=== PATIENT | female | born 1955 | race Caucasian/White ===

== ENCOUNTER 2017-11-28 10:44 | Observation (INO) | payer OTHER ==
[~2017-11-28] VITALS: Ht 172.7 cm; Wt 65.0 kg
[2017-11-28 11:56] LABS: BASO % 0.1 %; BASO ABS # 0.01 K/uL (0-0.2); EOS % 1.8 %; EOS ABS # 0.15 K/uL (0-0.5); HEMATOCRIT 38.2 % (37-47); HEMOGLOBIN 12.5 g/dL (12.0-16.0); IG# 0.03 K/uL (0.00-0.02); LYMPH % 10.4 %; LYMPH ABS # 0.85 K/uL (1.2-3.4); MEAN CELL VOLUME 93.2 fL (80-100); MEAN CORPUSCULAR HEMOGLOBIN 30.5 pg (25-34); MEAN CORPUSCULAR HGB CONC 32.7 g/dl (32-36); MEAN PLATELET VOLUME 9.7 fL (7.4-10.4); MONO % 6.6 %; MONO ABS # 0.54 K/uL (0.11-0.59); NEUT % 80.7 %; NEUT ABS # 6.61 K/uL (1.4-6.5); PLATELET COUNT 209 K/uL (130-400); RED CELL DISTRIBUTION WIDTH CV 13.7 % (11.5-14.5); RED CELL DISTRIBUTION WIDTH SD 46.5 fL (36.4-46.3); WHITE BLOOD COUNT 8.19 K/uL (4.8-10.8)
[2017-11-28 12:06] LABS: INR 1.3 (0.9-1.1); PTT PATIENT 41.5 SECONDS (21.0-31.0)
[2017-11-28 12:23] LABS: ALKALINE PHOSPHATASE 83 U/L (45-117); ALT/SGPT 20 U/L (12-78); AST/SGOT 12 U/L (15-37); BLOOD UREA NITROGEN 19 mg/dl (7-18); CALCIUM 9.6 mg/dl (8.5-10.1); CARBON DIOXIDE 27 mmol/L (21-32); CREATININE 1.07 mg/dl (0.60-1.20); GLUCOSE 134 mg/dl (70-99); POTASSIUM 3.5 mmol/L (3.5-5.1); SODIUM 143 mmol/L (136-145); TOTAL PROTEIN 6.1 gm/dl (6.4-8.2)
--- NOTE | 2017-11-28 13:37 | DIAGNOSTIC IMAGING REPORT ---
LUMBAR SPINE COMBINATION CLINICAL HISTORY: 62 years-old Female presenting with Back pain, left side, history of breast cancer, progressively worsening today, nonradiating pain, history of prior injury. TECHNIQUE: Multisequence, multiplanar MR imaging of the lumbar spine was performed before and after the administration of intravenous contrast. IV contrast: 7 mL of Gadavist. COMPARISON: None. FINDINGS: Localizer images: Several well-defined T2 hyperintensities in the liver likely hepatic cysts. Mild S-shaped scoliotic curvature of the lumbar spine with slight dextrocurvature at the thoracolumbar junction and levocurvature at L3-4. Exaggerated lumbar lordosis with focal kyphotic deformity at L1 with over 50% anterior vertebral body height loss. This level does not demonstrate significant T2 hyperintensity or suspicious enhancement to suggest a pathologic fracture or an acute injury. Mild fluid signal intensity within the T12-L1 and L1-2 disc spaces likely reactive and/or degenerative with no associated endplate edema. Round T2 hyperintense nonfat-containing enhancing lesion in T12. This is most concerning for a site of metastatic disease. T12 demonstrates approximately 25% anterior vertebral body height loss, which appears unrelated to the metastatic lesion. Mild inferior endplate concavity of L2 may also represent a compression deformity though this is not acute or subacute evidenced by the lack of edema. L3-L5 vertebral bodies maintain normal height, alignment, and bone marrow signal intensity. Diffuse intervertebral disc desiccation with height loss greatest in the upper to mid lumbar spine. Multilevel degenerative changes further detailed below: T12-L1: Minimal disc osteophyte complex without significant neural foraminal or spinal canal narrowing. L1-2: Minimal disc osteophyte complex without significant neural foraminal or spinal canal narrowing. L2-3: Minimal disc osteophyte complex with mild bilateral neural foraminal narrowing. No significant spinal canal narrowing. L3-4: Mild disc bulge is slightly eccentric with greater effacement of the right neural foramen. Mild bilateral neural foraminal narrowing. No apparent mass effect on the exiting roots. No significant spinal canal narrowing. L4-5: Mild disc bulge with resultant mild bilateral neural foraminal narrowing. Only mild facet arthropathy and ligamentum flavum thickening is evident. L5-S1: No significant neural foraminal or spinal canal narrowing. Spinal cord ends in good position at L1. Cauda equina normal in morphology. No abnormal enhancement of the nerve roots on postcontrast imaging. No epidural collection. Paraspinal musculature within normal limits for the patient's age. Nonspecific subcutaneous edema in the lumbar region. IMPRESSION: 1. Lesion at T12 most suspicious for metastatic focus. No additional site of osseous metastatic disease in the lumbar spine. 2. Moderate compression deformity of L1, which is chronic and does not appear to be a pathologic fracture. 3. Mild compression deformity of the inferior endplate of L2, which is also chronic and does not appear to be a pathologic fracture. 4. Mild multilevel degenerative changes with only mild bilateral neural foraminal narrowing at L2-3 through L4-5. No significant spinal canal narrowing. Electronically signed by: Jovan Aggarwal M.D. 11/28/2017 1:35 PM Dictated Date/Time: 11/28/2017 1:26 PM
[2017-11-28] MEDS ORDERED: [UNRECOGNIZED DRUG - OTHER] PO (13:44)
[2017-11-28] MEDS ORDERED: ZCR40 PO (13:44)
[2017-11-28] MEDS ORDERED: [UNRECOGNIZED DRUG - OTHER] PO (13:44)
[2017-11-28] MEDS ORDERED: [UNRECOGNIZED DRUG - OTHER] PO (13:44)
[2017-11-28] MEDS ORDERED: [UNRECOGNIZED DRUG - OTHER] PO (13:44)
[2017-11-28] MEDS ORDERED: DABI150C PO (13:44)
[2017-11-28 14:35] VITALS: O2SAT 98; Ht 172.7 cm; Wt 65.0 kg
--- NOTE | 2017-11-28 14:53 | History and Physical ---
History & Physical Date & Time of Service: Nov 28, 2017 at 14:23 Chief Complaint: Back Problems Primary Care Physician: No Doctor, Assigned History of Present Illness Source: patient, hospital records, other 62 y/o F Hx HLD, tobacco use, lower back pain, CVA with residual R weakness, LE edema, breast CA. Recently arrived from [facility] for a visit. She had seen her MD prior to departure as she was concerned with persistent lower back pain. She was subsequently cleared for travel. Her pain has become acutely worse today and she is unable to ambulate as a result. She states that the pain radiates down her L leg and is exacerbated with any movement. She denies acute numbness, incontinence or urinary retention. Her R leg is chronically weak following her CVA. A lumbar MRI was obtained in the ER revealing mild foraminal narrowing of L2-3 through L4-5, L1 and L2 compression deformities which appear chronic and, of concern, an osseous lesion at T12 which is consistent with metastatic disease. Her pain does not localize to this area. Past Medical/Surgical History 1) Chronic lower back pain 2) CVA - residual R weakness and contracture deformity of RUE 3) HLD 4) Breast CA 1996 - - treated with lumpectomy, chemo, radiation 5) Smoker Family History No pertinent family history Hails from [place] - smokes 6 cigarettes a week - does not drink Social History States her mother due to "old age" Her father following a serious injury from a fall Smoking Status: Current Every Day Smoker Allergies Coded Allergies: No Known Allergies (Unverified , 11/28/17) Home Medications Scheduled Dabigatran Etexilate Mesylate (Pradaxa), 150 MG PO BID Simvastatin (Simvastatin), 40 MG PO QPM [alendrox], 70 MG PO WK [etovicoxib], 90 MG PO DAILY [novaminsolfin], 30 DROPS PO QID [vigantal ol], 3 DROPS PO DAILY Review of Systems Constitutional: No fever, No chills, No sweats Eyes: No worsening of vision ENT: No unusual epistaxis, No nasal symptoms Respiratory: No cough, No sputum, No wheezing Cardiovascular: No chest pain, No orthopnea, No PND Abdomen: No pain, No nausea, No vomiting Musculoskeletal: + joint pain (Back pain as above), + problem reported (Lower back pain with radiation to the L leg) Genitourinary - Female: No dysuria, No urinary frequency, No urinary urgency Neurologic: + weakness (chronic R), No memory loss Psychiatric: No depression symptoms Endocrine: No fatigue Hematologic / Lymphatic: No abnormal bleeding/bruising Integumentary: No rash Allergic / Immunologic: No environmental allergies Physical Exam Vital Signs Date Time Temp Pulse Resp B/P (MAP) Pulse Ox O2 Delivery O2 Flow Rate FiO2 11/28/17 13:05 74 16 139/89 98 Room Air 11/28/17 11:09 84 11/28/17 10:51 36.9 92 20 112/76 95 Room Air General Appearance: WD/WN, no apparent distress Head: normocephalic Eyes: normal inspection ENT: normal ENT inspection, pharynx normal Neck: supple, no JVD Respiratory/Chest: chest non-tender, lungs clear, normal breath sounds Cardiovascular: regular rate, rhythm, no edema, no gallop Abdomen/GI: normal bowel sounds, non tender, soft Extremities/Musculoskelatal: + pertinent finding (She could not tolerate attempts to sit up. She has pain with passive and active movement of her legs. 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 which is also chronic ) Diagnostics Laboratory Results Results Past 24 Hours Test 11/28/17 11:45 11/28/17 14:10 Range/Units White Blood Count 8.19 4.8-10.8 K/uL Red Blood Count 4.10 4.2-5.4 M/uL Hemoglobin 12.5 12.0-16.0 g/dL Hematocrit 38.2 37-47 % Mean Corpuscular Volume 93.2 80-100 fL Mean Corpuscular Hemoglobin 30.5 25-34 pg Mean Corpuscular Hemoglobin Concent 32.7 32-36 g/dl Platelet Count 209 130-400 K/uL Mean Platelet Volume 9.7 7.4-10.4 fL Neutrophils (%) (Auto) 80.7 % Lymphocytes (%) (Auto) 10.4 % Monocytes (%) (Auto) 6.6 % Eosinophils (%) (Auto) 1.8 % Basophils (%) (Auto) 0.1 % Neutrophils # (Auto) 6.61 1.4-6.5 K/uL Lymphocytes # (Auto) 0.85 1.2-3.4 K/uL Monocytes # (Auto) 0.54 0.11-0.59 K/uL Eosinophils # (Auto) 0.15 0-0.5 K/uL Basophils # (Auto) 0.01 0-0.2 K/uL RDW Standard Deviation 46.5 36.4-46.3 fL RDW Coefficient of Variation 13.7 11.5-14.5 % Immature Granulocyte % (Auto) 0.4 % Immature Granulocyte # (Auto) 0.03 0.00-0.02 K/uL Erythrocyte Sedimentation Rate 5 0-21 mm/hr Prothrombin Time 13.6 9.0-12.0 SECONDS Prothromb Time International Ratio 1.3 0.9-1.1 Activated Partial Thromboplast Time 41.5 21.0-31.0 SECONDS Partial Thromboplastin Ratio 1.6 Sodium Level 143 136-145 mmol/L Potassium Level 3.5 3.5-5.1 mmol/L Chloride Level 110 98-107 mmol/L Carbon Dioxide Level 27 21-32 mmol/L Anion Gap 6.0 3-11 mmol/L Blood Urea Nitrogen 19 7-18 mg/dl Creatinine 1.07 0.60-1.20 mg/dl Estimated GFR () 63.5 Estimated GFR (Non- 54.8 BUN/Creatinine Ratio 17.5 10-20 Random Glucose 134 70-99 mg/dl Calcium Level 9.6 8.5-10.1 mg/dl Total Bilirubin 0.3 0.2-1 mg/dl Aspartate Amino Transf (AST/SGOT) 12 15-37 U/L Alanine Aminotransferase (ALT/SGPT) 20 12-78 U/L Alkaline Phosphatase 83 45-117 U/L C-Reactive Protein 4.37 0-0.29 mg/dl Total Protein 6.1 6.4-8.2 gm/dl Albumin 3.0 3.4-5.0 gm/dl Globulin 3.1 2.5-4.0 gm/dl Albumin/Globulin Ratio 1.0 0.9-2 Diagnostic Radiology 1. Lesion at T12 most suspicious for metastatic focus. No additional site of osseous metastatic disease in the lumbar spine. 2. Moderate compression deformity of L1, which is chronic and does not appear to be a pathologic fracture. 3. Mild compression deformity of the inferior endplate of L2, which is also chronic and does not appear to be a pathologic fracture. 4. Mild multilevel degenerative changes with only mild bilateral neural foraminal narrowing at L2-3 through L4-5. No significant spinal canal narrowing. Impression Assessment and Plan 62 y/o F Hx HLD, tobacco use, lower back pain, CVA with residual R weakness, LE edema, breast CA. Recently arrived from [place] for a visit. She had seen her MD prior to departure as she was concerned with persistent lower back pain. She was subsequently cleared for travel. Her pain has become acutely worse today and she is unable to ambulate as a result. She states that the pain radiates down her L leg and is exacerbated with any movement. She denies acute numbness, incontinence or urinary retention. Her R leg is chronically weak following her CVA. A lumbar MRI was obtained in the ER revealing mild foraminal narrowing of L2-3 through L4-5, L1 and L2 compression deformities which appear chronic and, of concern, an osseous lesion at T12 which is consistent with metastatic disease. Her pain does not localize to this area. 1) Back pain - inability to ambulate. We will provide pain control, antiinflammatories and a PT consult AM. If she has not improved, we may need to consult orthopedics, although by imaging, this does not appear to be a surgical issue. 2) Metastatic lesion at T12 - may be related to prior breast CA - she does not wish to pursue a workup in the [place] 3) CVA - etiology is not clear as she states she never had AF and is taking Pradaxa for a prior CVA. We will continue Pradaxa and a Statin. 3) HLD - cont Statin 4) Advised on smoking cessation Full code - Pradaxa prophylaxis. Total time for this admit including review of labs, meds, imaging, records - discussion with pt and ER attending - 45 min Resuscitation Status VTE Prophylaxis Will order VTE Prophylaxis: Yes
[2017-11-28] MEDS ORDERED: ALUMINUM/MAGNESIUM/SIMETH (MAALOX MAX) 30 ML UDC PO PRN (15:00)
[2017-11-28] MEDS ORDERED: ONDANSETRON INJ 2 MG/ML 2 ML VIAL IV PRN (15:00)
[2017-11-28] MEDS ORDERED: ACETAMINOPHEN 325 MG TAB PO PRN (15:00)
[2017-11-28] MEDS ORDERED: MAGNESIUM HYDROXIDE SUSP 30 ML UDC PO PRN (15:00)
[2017-11-28] MEDS ORDERED: POLYETHYLENE (MIRALAX) 17 GM PACK PO PRN (15:15)
[2017-11-28] MEDS ORDERED: KETOROLAC TROMETHAMINE 15 MG/ML VIAL IV. PRN (15:15)
--- NOTE | 2017-11-28 16:03 | EMERGENCY ROOM VISIT NOTE ---
History Report prepared by Lorie: Ana Granado Under the Supervision of: Dr. Drew Berry M.D. 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 They report she has had some back pain before traveling and had x-rays done and was cleared to travel. Her family reports that yesterday her pain worsened so much, she could no longer walk. They state her back pain is in her left buttock and radiates down her left leg. Sitting down alleviates her pain and movement is a worsening factor. They deny the pt having any fevers, cough, chest pain, or SOB. They report the patient had a stroke in 2006 and her right side was affected but she recovered some function. The patient also had breast cancer in the past. She takes Pradaxa and a cholesterol medication regularly. HPI and ROS somewhat limited secondary to the language barrier. 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 HPI and ROS somewhat limited secondary to the language barrier. Past Medical & Surgical Medical Problems: (1) Back pain Family History No pertinent family history Social History Smoking Status: Current Every Day Smoker Marital Status: Housing Status: lives with significant other Occupation Status: retired Current/Historical Medications Scheduled Dabigatran Etexilate Mesylate (Pradaxa), 150 MG PO BID Simvastatin (Simvastatin), 40 MG PO QPM [alendrox], 70 MG PO WK [etovicoxib], 90 MG PO DAILY [novaminsolfin], 30 DROPS PO QID [vigantal ol], 3 DROPS PO DAILY Allergies Coded Allergies: No Known Allergies (Unverified , 11/28/17) Physical Exam Vital Signs Date Time Temp Pulse Resp B/P (MAP) Pulse Ox O2 Delivery O2 Flow Rate FiO2 11/28/17 14:35 98 Room Air 11/28/17 13:05 74 16 139/89 98 Room Air 11/28/17 11:09 84 11/28/17 10:51 36.9 92 20 112/76 95 Room Air Physical Exam GENERAL: Patient is in no acute distress. HEENT: No acute trauma, normocephalic atraumatic, mucous membranes moist, no nasal congestion, no scleral icterus. NECK: No stridor, no adenopathy, no meningismus, trachea is midline. LUNGS: Clear to auscultation bilaterally, no wheeze, no rhonchi, breath sounds equal. HEART: Without murmurs gallops or rubs, regular rate and rhythm. ABDOMEN: Soft, nontender, bowel sounds positive, no hernias, no peritonitis. EXTREMITIES: No cyanosis, no signs for acute trauma. Moderate bilateral pedal edema. Left leg is painful with just minimal movement. Pain into her back from this leg movement. NEUROLOGIC: Right arm and right leg are weak secondary to previously described stroke. Awake and alert. SKIN: No rash, no jaundice, no diaphoresis. Medical Decision & Procedures ER Provider Diagnostic Interpretation: Radiology results as stated below per my review and radiologist interpretation: LUMBAR SPINE COMBINATION CLINICAL HISTORY: 62 years-old Female presenting with Back pain, left side, history of breast cancer, progressively worsening today, nonradiating pain, history of prior injury. TECHNIQUE: Multisequence, multiplanar MR imaging of the lumbar spine was performed before and after the administration of intravenous contrast. IV contrast: 7 mL of Gadavist. COMPARISON: None. FINDINGS: Localizer images: Several well-defined T2 hyperintensities in the liver likely hepatic cysts. Mild S-shaped scoliotic curvature of the lumbar spine with slight dextrocurvature at the thoracolumbar junction and levocurvature at L3-4. Exaggerated lumbar lordosis with focal kyphotic deformity at L1 with over 50% anterior vertebral body height loss. This level does not demonstrate significant T2 hyperintensity or suspicious enhancement to suggest a pathologic fracture or an acute injury. Mild fluid signal intensity within the T12-L1 and L1-2 disc spaces likely reactive and/or degenerative with no associated endplate edema. Round T2 hyperintense nonfat-containing enhancing lesion in T12. This is most concerning for a site of metastatic disease. T12 demonstrates approximately 25% anterior vertebral body height loss, which appears unrelated to the metastatic lesion. Mild inferior endplate concavity of L2 may also represent a compression deformity though this is not acute or subacute evidenced by the lack of edema. L3-L5 vertebral bodies maintain normal height, alignment, and bone marrow signal intensity. Diffuse intervertebral disc desiccation with height loss greatest in the upper to mid lumbar spine. Multilevel degenerative changes further detailed below: T12-L1: Minimal disc osteophyte complex without significant neural foraminal or spinal canal narrowing. L1-2: Minimal disc osteophyte complex without significant neural foraminal or spinal canal narrowing. L2-3: Minimal disc osteophyte complex with mild bilateral neural foraminal narrowing. No significant spinal canal narrowing. L3-4: Mild disc bulge is slightly eccentric with greater effacement of the right neural foramen. Mild bilateral neural foraminal narrowing. No apparent mass effect on the exiting roots. No significant spinal canal narrowing. L4-5: Mild disc bulge with resultant mild bilateral neural foraminal narrowing. Only mild facet arthropathy and ligamentum flavum thickening is evident. L5-S1: No significant neural foraminal or spinal canal narrowing. Spinal cord ends in good position at L1. Cauda equina normal in morphology. No abnormal enhancement of the nerve roots on postcontrast imaging. No epidural collection. Paraspinal musculature within normal limits for the patient's age. Nonspecific subcutaneous edema in the lumbar region. IMPRESSION: 1. Lesion at T12 most suspicious for metastatic focus. No additional site of osseous metastatic disease in the lumbar spine. 2. Moderate compression deformity of L1, which is chronic and does not appear to be a pathologic fracture. 3. Mild compression deformity of the inferior endplate of L2, which is also chronic and does not appear to be a pathologic fracture. 4. Mild multilevel degenerative changes with only mild bilateral neural foraminal narrowing at L2-3 through L4-5. No significant spinal canal narrowing. Electronically signed by: Jovan Aggarwal M.D. 11/28/2017 1:35 PM Laboratory Results 11/28/17 11:45 Red Blood Count 4.10, Mean Corpuscular Volume 93.2, Mean Corpuscular Hemoglobin 30.5, Mean Corpuscular Hemoglobin Concent 32.7, Mean Platelet Volume 9.7, Neutrophils (%) (Auto) 80.7, Lymphocytes (%) (Auto) 10.4, Monocytes (%) (Auto) 6.6, Eosinophils (%) (Auto) 1.8, Basophils (%) (Auto) 0.1, Neutrophils # (Auto) 6.61, Lymphocytes # (Auto) 0.85, Monocytes # (Auto) 0.54, Eosinophils # (Auto) 0.15, Basophils # (Auto) 0.01 11/28/17 11:45 Test 11/28/17 11:45 11/28/17 14:10 White Blood Count 8.19 K/uL (4.8-10.8) Red Blood Count 4.10 M/uL (4.2-5.4) Hemoglobin 12.5 g/dL (12.0-16.0) Hematocrit 38.2 % (37-47) Mean Corpuscular Volume 93.2 fL (80-100) Mean Corpuscular Hemoglobin 30.5 pg (25-34) Mean Corpuscular Hemoglobin Concent 32.7 g/dl (32-36) Platelet Count 209 K/uL (130-400) Mean Platelet Volume 9.7 fL (7.4-10.4) Neutrophils (%) (Auto) 80.7 % Lymphocytes (%) (Auto) 10.4 % Monocytes (%) (Auto) 6.6 % Eosinophils (%) (Auto) 1.8 % Basophils (%) (Auto) 0.1 % Neutrophils # (Auto) 6.61 K/uL (1.4-6.5) Lymphocytes # (Auto) 0.85 K/uL (1.2-3.4) Monocytes # (Auto) 0.54 K/uL (0.11-0.59) Eosinophils # (Auto) 0.15 K/uL (0-0.5) Basophils # (Auto) 0.01 K/uL (0-0.2) RDW Standard Deviation 46.5 fL (36.4-46.3) RDW Coefficient of Variation 13.7 % (11.5-14.5) Immature Granulocyte % (Auto) 0.4 % Immature Granulocyte # (Auto) 0.03 K/uL (0.00-0.02) Erythrocyte Sedimentation Rate 5 mm/hr (0-21) Prothrombin Time 13.6 SECONDS (9.0-12.0) Prothromb Time International Ratio 1.3 (0.9-1.1) Activated Partial Thromboplast Time 41.5 SECONDS (21.0-31.0) Partial Thromboplastin Ratio 1.6 Anion Gap 6.0 mmol/L (3-11) Estimated GFR () 63.5 Estimated GFR (Non- 54.8 BUN/Creatinine Ratio 17.5 (10-20) Calcium Level 9.6 mg/dl (8.5-10.1) Total Bilirubin 0.3 mg/dl (0.2-1) Aspartate Amino Transf (AST/SGOT) 12 U/L (15-37) Alanine Aminotransferase (ALT/SGPT) 20 U/L (12-78) Alkaline Phosphatase 83 U/L (45-117) C-Reactive Protein 4.37 mg/dl (0-0.29) Total Protein 6.1 gm/dl (6.4-8.2) Albumin 3.0 gm/dl (3.4-5.0) Globulin 3.1 gm/dl (2.5-4.0) Albumin/Globulin Ratio 1.0 (0.9-2) Urine Color YELLOW Urine Appearance CLOUDY (CLEAR) Urine pH 7.5 (4.5-7.5) Urine Specific [place] 1.019 (1.000-1.030) Urine Protein NEG (NEG) Urine Glucose (UA) 1+ (NEG) Urine Ketones NEG (NEG) Urine Occult Blood NEG (NEG) Urine Nitrite NEG (NEG) Urine Bilirubin NEG (NEG) Urine Urobilinogen NEG (NEG) Urine Leukocyte Esterase TRACE (NEG) Urine WBC (Auto) 1-5 /hpf (0-5) Urine RBC (Auto) 0-4 /hpf (0-4) Urine Hyaline Casts (Auto) 1-5 /lpf (0-5) Urine Epithelial Cells (Auto) >30 /lpf (0-5) Urine Bacteria (Auto) 3+ (NEG) Laboratory results reviewed by me. ECG Per My Interpretation Indication: back/shoulder pain Rate (beats per minute): 82 Rhythm: normal sinus Findings: other (no ST elevation, no PVCs) ED Course 1125: The patient was evaluated in room C4. A complete history and physical exam was performed. 1355: Discussed the patient's case with Dr. Falk, [facility] Hospitalist. The patient will be evaluated for further management. Medical Decision Differential diagnosis: Etiologies such as lumbar disc herniation, sciatica lumbar fracture, metastatic disease, UTI, electrolyte imbalance, anemia, as well as others were entertained. There is no leukocytosis or concerning anemia. No significant electrolyte abnormality, kidney failure or hepatitis. Urinalysis appears to show some contamination. Sed rate is normal, CRP is slightly elevated. EKG shows a normal sinus rhythm, no acute ischemia. Lumbar spine MRI shows a potential metastatic lesion to T12. There were some older compression fractures of the lumbar spine. No evidence for abscess. The patient has difficulty ambulating because of a previous stroke affecting the right side. She now cannot walk at all because of severe back pain and pain moving down her left leg. She cannot even get up to the bathroom on her own. The patient's pain is likely related to the lesion on the spine that was noted on MRI. Certainly, some of the compression fracture findings could be responsible for some of her pain. She is in no condition to be discharged. She requires pain control and probably physical therapy or some type of pain management procedure here in the hospital. I spoke to the patient and her family. I spoke to wrapper caser. The on-call hospitalist was consulted. Consults Time Called: 1346 Consulting Physician: Dr. Falk [facility] Hospitalist Returned Call: [id number] Discussed the patient's case with Dr. Falk [facility] Hospitalist. The patient will be evaluated for further management. Impression Primary Impression: Severe low back pain Additional Impressions: Unable to ambulate Compression fracture Abnormal MRI, lumbar spine Scribe Attestation The scribe's documentation has been prepared under my direction and personally reviewed by me in its entirety. I confirm that the note above accurately reflects all work, treatment, procedures, and medical decision making performed by me. Departure Information Dispostion Being Evaluated By Hospitalist (Dr. Falk, [facility] Hospitalist) Patient Instructions My [facility] Problem Qualifiers
[2017-11-28] MEDS ORDERED: IV FLUIDS COMPLETED PRN (16:15)
[2017-11-28 16:36] VITALS: BP 135/84; PULSE 77; TEMP 36.6; O2SAT 98
[2017-11-28] MEDS: DABIGATRAN ELEXILATE 75 MG CAP PO SCH (20:14)
[2017-11-28] MEDS: DOCUSATE SODIUM 100 MG CAP PO SCH (20:14)
[2017-11-28] MEDS: SIMVASTATIN 40 MG TAB PO SCH (20:14)
[2017-11-28] MEDS: OXYCODONE/ACETAMINOPHEN 5-325 TAB PO PRN (20:14)
[2017-11-28 22:49] VITALS: BP 143/81; PULSE 72; TEMP 37; O2SAT 93
[2017-11-29 08:03] VITALS: BP 145/82; PULSE 73; TEMP 37.2; O2SAT 96
[2017-11-29] MEDS: DABIGATRAN ELEXILATE 75 MG CAP PO SCH ×2 (08:29→20:31)
[2017-11-29] MEDS: DOCUSATE SODIUM 100 MG CAP PO SCH ×3 (08:29→20:30)
--- NOTE | 2017-11-29 10:54 | Hospitalist Progress Note ---
Hospitalist Progress Note Date of Service Nov 29, 2017. Subjective Pt evaluation today including: conversation w/ patient, conversation w/ family ( and sister at bedside, sister provides translation), physical exam, chart review, lab review, review of inpatient medication list Pain: None at rest, 8-9 out of 10 w/movement PO Intake: Tolerating PO diet Voiding: no voiding problems Patient does not speak [place], sister at bedside provides translation. The patient denies any pain currently while in bed but states that any movement, particularly sitting up and trying to walk, is very painful. She describes an 8 -9/10 sharp pain in her lower back radiating down her left thigh with any movement. She states her leg is weak and she is still unable to walk. Sister states that physical therapy came to evaluate, and it took 3 people just to get her to her feet. The patient is normally independent with walking. She is now unable to even lift her legs due to pain. It is unclear if the Percocet is helping with the pain as she only has pain w/movement and so has not been really taking it as she feels fine at rest. She did not take prior to physical therapy. The patient denies fevers, chills, sweats, chest pain, palpitations, claudication, cough, wheezing, shortness of breath, nausea, vomiting, abdominal pain, dysuria, hematuria, urinary retention, paralysis, numbness and tingling. Additional Comments: See HPI for pertinent positives and negatives. All other systems reviewed and negative. Objective Vital Signs Date Time Temp Pulse Resp B/P (MAP) Pulse Ox O2 Delivery O2 Flow Rate FiO2 11/29/17 08:03 37.2 73 20 145/82 (103) 96 11/29/17 00:00 Room Air 11/28/17 22:49 37.0 72 18 143/81 (101) 93 Room Air 11/28/17 16:36 36.6 77 18 135/84 (101) 98 11/28/17 16:03 77 20 142/95 98 11/28/17 16:00 Room Air 11/28/17 15:00 78 18 133/80 97 Room Air 11/28/17 14:35 98 Room Air 11/28/17 13:05 74 16 139/89 98 Room Air 11/28/17 11:09 84 11/28/17 10:51 36.9 92 20 112/76 95 Room Air Physical Exam Notes: General appearance: Well-developed, well-nourished, no apparent distress Head: Normocephalic, atraumatic Eyes: Normal inspection, PERRL, EOMI ENT: Normal ENT inspection, hearing grossly normal, pharynx normal Neck: Supple, no JVD, trachea midline Respiratory/Chest: Lungs clear to auscultation, normal breath sounds, no respiratory distress Cardiovascular: Regular rate & rhythm, no gallop, no murmur Abdomen/GI: Normal bowel sounds, non-tender, soft Extremities/Musculoskeletal: +Pt unable to sit up due to pain. Limited ROM of LLE due to pain and motor strength testing is limited by pain. Pt has chronic/ residual right sided weakness from previous stroke. Normal inspection, no calf tenderness, no pedal edema Neurological/Psych: Alert, normal mood/affect, oriented x 3 Skin: Normal color, warm/dry, no rash Laboratory Results Last 24 Hours Test 11/28/17 11:45 11/28/17 14:10 White Blood Count 8.19 K/uL Red Blood Count 4.10 M/uL Hemoglobin 12.5 g/dL Hematocrit 38.2 % Mean Corpuscular Volume 93.2 fL Mean Corpuscular Hemoglobin 30.5 pg Mean Corpuscular Hemoglobin Concent 32.7 g/dl Platelet Count 209 K/uL Mean Platelet Volume 9.7 fL Neutrophils (%) (Auto) 80.7 % Lymphocytes (%) (Auto) 10.4 % Monocytes (%) (Auto) 6.6 % Eosinophils (%) (Auto) 1.8 % Basophils (%) (Auto) 0.1 % Neutrophils # (Auto) 6.61 K/uL Lymphocytes # (Auto) 0.85 K/uL Monocytes # (Auto) 0.54 K/uL Eosinophils # (Auto) 0.15 K/uL Basophils # (Auto) 0.01 K/uL RDW Standard Deviation 46.5 fL RDW Coefficient of Variation 13.7 % Immature Granulocyte % (Auto) 0.4 % Immature Granulocyte # (Auto) 0.03 K/uL Erythrocyte Sedimentation Rate 5 mm/hr Prothrombin Time 13.6 SECONDS Prothromb Time International Ratio 1.3 Activated Partial Thromboplast Time 41.5 SECONDS Partial Thromboplastin Ratio 1.6 Sodium Level 143 mmol/L Potassium Level 3.5 mmol/L Chloride Level 110 mmol/L Carbon Dioxide Level 27 mmol/L Anion Gap 6.0 mmol/L Blood Urea Nitrogen 19 mg/dl Creatinine 1.07 mg/dl Estimated GFR () 63.5 Estimated GFR (Non- 54.8 BUN/Creatinine Ratio 17.5 Random Glucose 134 mg/dl Calcium Level 9.6 mg/dl Total Bilirubin 0.3 mg/dl Aspartate Amino Transf (AST/SGOT) 12 U/L Alanine Aminotransferase (ALT/SGPT) 20 U/L Alkaline Phosphatase 83 U/L C-Reactive Protein 4.37 mg/dl Total Protein 6.1 gm/dl Albumin 3.0 gm/dl Globulin 3.1 gm/dl Albumin/Globulin Ratio 1.0 Urine Color YELLOW Urine Appearance CLOUDY Urine pH 7.5 Urine Specific [place] 1.019 Urine Protein NEG Urine Glucose (UA) 1+ Urine Ketones NEG Urine Occult Blood NEG Urine Nitrite NEG Urine Bilirubin NEG Urine Urobilinogen NEG Urine Leukocyte Esterase TRACE Urine WBC (Auto) 1-5 /hpf Urine RBC (Auto) 0-4 /hpf Urine Hyaline Casts (Auto) 1-5 /lpf Urine Epithelial Cells (Auto) >30 /lpf Urine Bacteria (Auto) 3+ Assessment and Plan 62 y/o female with a history of CVA w/residual right sided weakness, HLD, tobacco use, lower back pain, and breast cancer who presents with acute lower back pain and difficulty ambulating. Pt normally independently ambulatory at baseline but has progressive pain and LLE weakness in the last few days until she could no longer walk. Low back pain, LLE weakness--stable -Admit to med/surg for observation -Lumbar MRI done in ED shows a lesion at T12 which is suspicious for metastatic focus. Moderate compression deformity of L1 which is chronic, no pathological fracture. Mild compression deformity of L2 which is also chronic and no pathological fracture. Mild multilevel degenerative changes with mild bilateral neural foraminal narrowing from L2-L5. -Will try to time Percocet w/physical therapy/activity to see if this is really helping her pain -Decadron 10 mg IV x 1, then 4 mg IV q6h -PT/OT ordered -Will hold off on ortho consult for now, as imaging does not seem to indicate surgical intervention and pt would not want to do any surgery here CVA w/residual weakness, HLD--stable -Continue Pradaxa 150 mg PO BID and Zocor 40 mg PO qd Tobacco use -Encourage cessation Breast cancer, possible metastatic T12 lesion -Pt does not want work up for this done in [place], will wait until she returns to [place] on 12/15 DVT prophylaxis -Pradaxa Code Status -Level I, FULL RESUSCITATION STATUS Continued [facility] stay due to: inadequate oral pain control, ambulation difficulties
[2017-11-29] MEDS ORDERED: DEXAMETHASONE INJ 10 MG in SYRINGE 0 ML IV ONE (11:00)
[2017-11-29] MEDS: OXYCODONE/ACETAMINOPHEN 5-325 TAB PO PRN (12:10)
[2017-11-29 15:47] VITALS: BP 150/84; PULSE 73; TEMP 36.6; O2SAT 95
--- NOTE | 2017-11-29 16:59 | DIAGNOSTIC IMAGING REPORT ---
L PELVIS/UNILATERAL HIP 2-3VIEWS CLINICAL HISTORY: Left hip pain. COMPARISON: None FINDINGS: Osteopenia is noted. No acute fracture of the proximal femurs is identified. There is deformity of the medial left pubic bone. This is probably chronic. 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 Apparent lucent lesion within left femoral head and neck is noted. IMPRESSION: 1. No acute fracture within the left hip although sensitivity diminished given osteopenia. 2. Deformity of the medial left pubic bone which is probably old. 3. Apparent lucent lesion with a left femoral head and neck. This may simply represent osteopenia and the radiographic appearance is not suggestive of an aggressive lesion. However, if persistent pain, an MRI of the left hip is recommended. Electronically signed by: Franc Busch M.D. 11/29/2017 4:57 PM Dictated Date/Time: 11/29/2017 4:53 PM
[2017-11-29] MEDS: DEXAMETHASONE INJ 4 MG in SYRINGE 0 ML IV SCH ×2 (17:09→23:02)
[2017-11-29] MEDS ORDERED: NURSING VERBAL MED ORDER ONE ×2 (18:15→18:30)
[2017-11-29] MEDS ORDERED: CALCIUM CARBONATE 500 MG CHEWABLE PO ONE (19:15)
[2017-11-29] MEDS: SIMVASTATIN 40 MG TAB PO SCH (20:30)
[2017-11-29 20:48] VITALS: O2SAT 95
[2017-11-29 23:00] VITALS: BP 136/81; PULSE 69; TEMP 36.5; O2SAT 96
[2017-11-30] MEDS: DEXAMETHASONE INJ 4 MG in SYRINGE 0 ML IV SCH ×4 (05:20→22:03)
[2017-11-30] MEDS: DOCUSATE SODIUM 100 MG CAP PO SCH ×2 (07:47→22:02)
[2017-11-30] MEDS: DABIGATRAN ELEXILATE 75 MG CAP PO SCH ×2 (07:47→22:02)
[2017-11-30] MEDS: CALCIUM CARBONATE 500 MG CHEWABLE PO SCH ×3 (07:48→17:20)
[2017-11-30 07:55] VITALS: BP 128/78; PULSE 61; TEMP 36.7; O2SAT 95
[2017-11-30 08:30] VITALS: O2SAT 95
[2017-11-30] MEDS: OXYCODONE/ACETAMINOPHEN 5-325 TAB PO PRN (12:24)
--- NOTE | 2017-11-30 14:14 | Progress Note ---
Subjective Date of Service: Nov 30, 2017. Subjective Pt evaluation today including: conversation w/ patient, conversation w/ family , physical exam, review of studies, review of inpatient medication list Pain: less pain, 7 out of 10 today PO Intake: adequate Voiding: no voiding problems patient sitting up in chair again, says that sitting or laying, there is no pain gets severe, stabbing pain in left hip, left lower back with moving leg, trying to stand or walk however, she did better with therapy today reviewed pelvic x-ray, no fractures seen however, there was some lucency in the head and neck of the femur, could be osteoporosis but metastatic lesion could not be ruled out discussed with patient and her sister, would prefer to get MRI left hip in [place] noted that patient had not taken Percocet for 24 hours encouraged her to take more often for better pain control, especially prior to therapy plan to d/c home tomorrow AM, patient and family agree with this plan Problem List Medical Problems: (1) Abnormal MRI, lumbar spine Status: Acute (2) Compression fracture Status: Acute (3) Severe low back pain Status: Acute (4) Unable to ambulate Status: Acute Review of Systems Musculoskeletal: + joint pain (left hip, left lower back) All Other Systems: Reviewed and Negative Medications Current Inpatient Medications Medications (Trade) Dose Ordered Sig/[place] Route Start Time Stop Time Status Last Admin Dose Admin Dabigatran (Pradaxa Cap) 150 mg BID PO 11/28/17 20:00 12/28/17 20:59 11/30/17 07:47 150 MG Simvastatin (Zocor Tab) 40 mg QPM PO 11/28/17 21:00 12/28/17 20:59 11/29/17 20:30 40 MG Acetaminophen (Tylenol Tab) 650 mg Q4H PRN PO 11/28/17 15:00 12/28/17 14:59 Al Hydrox/Mg Hydrox/Simethicone (Maalox Max Susp) 15 ml Q4H PRN PO 11/28/17 15:00 12/28/17 14:59 Magnesium Hydroxide (Milk Of Magnesia Susp) 30 ml Q6H PRN PO 11/28/17 15:00 12/28/17 14:59 Polyethylene (Miralax Powder Packet) 17 gm DAILY PRN PO 11/28/17 15:15 9/17/18 15:14 Ondansetron HCl (Zofran Inj) 4 mg Q6H PRN IV 11/28/17 15:00 12/28/17 14:59 Oxycodone/ Acetaminophen (Percocet 5-325mg Tab) 1 tab Q4H PRN PO 11/28/17 15:00 12/12/17 14:59 11/30/17 12:24 1 TAB Docusate Sodium (coLACE CAP) 100 mg BID PO 11/28/17 20:00 12/28/17 20:59 11/30/17 07:47 100 MG Miscellaneous (Iv Fluids Completed) 1 ea PRN PRN N/A 11/28/17 16:15 11/28/18 16:14 Dexamethasone Sodium Phosphate 4 mg/Syringe 1 ml @ 1 mls/min Q6H IV 11/29/17 17:00 12/29/17 16:59 11/30/17 11:59 1 MLS/MIN Calcium Carbonate (Tums Chew Tab) 500 mg PC PO 11/30/17 09:00 12/30/17 08:59 11/30/17 07:48 500 MG Objective Vital Signs Date Time Temp Pulse Resp B/P (MAP) Pulse Ox O2 Delivery O2 Flow Rate FiO2 11/30/17 08:30 95 Room Air 11/30/17 07:55 36.7 61 20 128/78 (95) 95 11/29/17 23:00 36.5 69 18 136/81 (99) 96 Room Air 11/29/17 20:48 95 Room Air 11/29/17 16:00 Room Air 11/29/17 15:47 36.6 73 18 150/84 (106) 95 Room Air Physical Exam General Appearance: WD/WN, no apparent distress Eyes: normal inspection, EOMI, sclerae normal ENT: normal ENT inspection, hearing grossly normal, pharynx normal Neck: supple, no adenopathy, no JVD, trachea midline Respiratory/Chest: chest non-tender, lungs clear, normal breath sounds, no respiratory distress, no accessory muscle use Cardiovascular: regular rate, rhythm, no edema, no gallop, no JVD, no murmur Abdomen: normal bowel sounds, non tender, soft, no organomegaly Extremities: normal inspection, no pedal edema, no calf tenderness, normal capillary refill, pelvis stable, + pertinent finding (left hip tender, decreased ROM due to pain) 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 Pt normally independently ambulatory at baseline but has progressive pain and LLE weakness in the last few days until she could no longer walk. Low back pain, LLE weakness--stable MRI: T12 lesion suggests metastatic focus, old compression fx of L1 and L2, no severe stenosis recommend increasing frequency of Percocet for better pain control, did better with therapy today continue Decadron IV while admitted, change to PO on discharge pelvic x-ray suggests possible left femur lesion? patient prefers to get MRI hip in [place] PT/OT following tentatively plan to d/c home tomorrow returns to [place] on 12/15 CVA w/residual weakness, HLD--stable -Continue Pradaxa 150 mg PO BID and Zocor 40 mg PO qd Tobacco use -Encourage cessation Breast cancer, possible metastatic T12 lesion, possible left femoral head and neck metastatic lesion -Pt does not want work up for this done in [place], will wait until she returns to [place] on 12/15 DVT prophylaxis -Pradaxa Code Status -Level I, FULL RESUSCITATION STATUS Continued [facility] stay due to: inadequate oral pain control, ambulation difficulties
[2017-11-30 15:48] VITALS: BP 121/78; PULSE 61; TEMP 36.8; O2SAT 95
[2017-11-30] MEDS: SIMVASTATIN 40 MG TAB PO SCH (22:02)
[2017-11-30 23:07] VITALS: BP 137/77; PULSE 57; TEMP 36.3; O2SAT 94
[2017-12-01 01:13] VITALS: O2SAT 95
[2017-12-01] MEDS: DEXAMETHASONE INJ 4 MG in SYRINGE 0 ML IV SCH ×2 (05:27→10:37)
[2017-12-01 07:35] VITALS: BP 137/77; PULSE 56; TEMP 36.7; O2SAT 96
[2017-12-01 07:56] LABS: CREATININE 0.84 mg/dl (0.60-1.20)
[2017-12-01] MEDS: CALCIUM CARBONATE 500 MG CHEWABLE PO SCH ×2 (08:52→13:00)
[2017-12-01] MEDS: DOCUSATE SODIUM 100 MG CAP PO SCH (08:52)
[2017-12-01] MEDS: DABIGATRAN ELEXILATE 75 MG CAP PO SCH (08:52)
[2017-12-01] MEDS: OXYCODONE/ACETAMINOPHEN 5-325 TAB PO PRN (10:43)
[2017-12-01] MEDS ORDERED: CLC100 PO (11:43)
[2017-12-01] MEDS ORDERED: ACET-1256 PO (11:43)
[2017-12-01] MEDS ORDERED: RXC5 PO (11:47)
[2017-12-01] MEDS ORDERED: METH4PAK PO (11:47)
--- NOTE | 2017-12-01 12:02 | Discharge Instructions ---
Discharge Instructions Date of Service Dec 01, 2017. Admission Reason for Admission: Back Pain Discharge Discharge Diagnosis / Problem: Back and left hip pain, T12 spine lesion, compression fractures (old) Discharge Goals Goal(s): Decrease discomfort, Improve function, Increase independence Activity Recommendations Activity Limitations: per Instructions/Follow-up section Lifting Limitations: no more than 5 pounds Exercise/Sports Limitations: none Shower/Bathe: no limitations Driving or Machine Use: no driving . Instructions / Follow-Up Instructions / Follow-Up Medications: - TYLENOL: take 1000mg (two 500mg tablets) three times a day, I want this to be scheduled for the next two weeks, then you can take as needed - OXYCODONE: 5mg tablet, you can take up to every 8 hours as needed for pain control, at a minimum I think you should take in the morning and early afternoon to help you get around - DOCUSATE: stool softener, take twice a day with a full glass of water to help prevent constipation while on narcotics - MEDROL: steroid taper over the next 6 days, follow instructions Severe back and left hip pain likely due to nerve impingement in spine as well as possible left femoral neck and head lesions seen on x-ray MRI lumbar spine showed T12 lesion that could be metastatic from breast also showed old L1 and L2 compression fractures, mild spinal stenosis and foraminal narrowing pelvic x-ray showed no fractures, did show some lucency in left femoral head and neck, could be osteopenia but also could be metastatic lesions recommend dedicated left hip MRI when back in [place] for pain control, use Tylenol 1000mg scheduled every 8 hours for the next two weeks use Oxycodone in the morning and early afternoon, you can take one in the evening if needed use walker and wheelchair and assistance from family to get around the house the next two weeks Follow up: physician in [place] once you are home Current Hospital Diet Patient's current hospital diet: Regular Diet Discharge Diet Recommended Diet: Regular Diet Pending Studies Studies pending at discharge: no Medical Emergencies . Who to Call and When: Medical Emergencies: If at any time you feel your situation is an emergency, please call 911 immediately. . Non-Emergent Contact Non-Emergency issues call your: Specialist (hospitalist) Contact Number: Dr. Mendiola, call hospitalist office at [phone] Call Non-Emergent contact if: your pain is not controlled, your pain is worsening . . "Provider Documentation" section prepared by Eric Mendioal. . [place] Drug Monitoring Program Search Results: no issues identified
--- NOTE | 2017-12-01 12:09 | Discharge Summary ---
Discharge Summary Date of Service Dec 01, 2017. Discharge Summary Admission Date: Nov 28, 2017 at 14:58 Discharge Date: Dec 01, 2017 Discharge Disposition: Home Principal Diagnosis: Severe low back pain and left hip pain Problems/Secondary Diagnoses: Breast cancer prior ischemic stroke with right sided weakness Procedures: none Consultations: none Medication Reconciliation New Medications: Acetaminophen (Tylenol) 500 Mg Tab 2 TAB PO Q8 for 14 Days, #100 TAB Methylprednisolone (Medrol Dosepak) 4 Mg Feng 1 PKT PO UD for 6 Days, #1 PKT Oxycodone HCl (Oxycodone HCl) 5 Mg Tab 5 MG PO Q8 PRN for Pain, #60 TABS 0 Refills Docusate Sodium (Docusate Sodium) 100 Mg Cap 100 MG PO BID, #60 CAP 0 Refills Continued Medications: Dabigatran Etexilate Mesylate (Pradaxa) 150 Mg Cap 150 MG PO BID, CAP Simvastatin (Simvastatin) 40 Mg Tab 40 MG PO QPM [alendrox] () 70 MG PO WK THURSDAYS [etovicoxib] () 90 MG PO DAILY [novaminsolfin] () 30 DROPS PO QID mix in water [vigantal ol] () 3 DROPS PO DAILY MIX IN WATER Discharge Exam Patient feeling better, less pain, more mobile today. Discussed with her sister , plan to go home, feel comfortable using walker and wheelchair and family assistance to get her around. Plan to fly back to [place] in 2 weeks. Discussed pain control, will provide with enough pain medication for her to make flight home. Review of Systems: Constitutional: No fever, No chills, No sweats, No weight loss, No weakness , No fatigue, No problem reported Eyes: No worsening of vision, No eye pain, No redness, No discharge, No diplopia, No problem reported ENT: No hearing loss, No unusual epistaxis, No nasal symptoms, No sore throat, No tinnitus, No dental problems, No trouble swallowing, No problem reported Respiratory: No cough, No sputum, No wheezing, No shortness of breath, No dyspnea on exertion, No dyspnea at rest, No hemoptysis, No problem reported Cardiovascular: No chest pain, No orthopnea, No PND, No edema, No claudication, No palpitations, No problem reported Abdomen: No pain, No nausea, No vomiting, No diarrhea, No constipation, No GI bleeding, No problem reported Musculoskeletal: + joint pain (low back and left hip) Genitourinary - Female: No dysuria, No urinary frequency, No urinary urgency , No urinary incontinence, No urinary retention, No hematuria Neurologic: + weakness (right sided, chronic), No memory loss, No paralysis , No numbness/tingling, No vertigo, No balance problems, No problem reported Psychiatric: No depression symptoms, No anhedonism, No anxiety, No insomnia , No substance abuse, No problem reported Endocrine: No fatigue, No excessive thirst, No excessive urination, No problem reported Hematologic / Lymphatic: No abnormal bleeding/bruising, No clotting problems , No swollen lymph nodes, No night sweats, No problem reported Integumentary: No rash, No itch, No new/changing skin lesions, No color change, No bleeding, No problem reported Physical Exam: General Appearance: WD/WN, no apparent distress Eyes: normal inspection, EOMI, sclerae normal ENT: normal ENT inspection, hearing grossly normal, pharynx normal Neck: supple, no adenopathy, no JVD, trachea midline Respiratory/Chest: chest non-tender, lungs clear, normal breath sounds, no respiratory distress, no accessory muscle use Cardiovascular: regular rate, rhythm, no edema, no gallop, no JVD, no murmur , normal peripheral pulses Abdomen / GI: normal bowel sounds, non tender, soft, no organomegaly Extremities: normal inspection, no calf tenderness, normal capillary refill , no pedal edema, pelvis stable, + pertinent finding (decreased ROM of left hip due to pain) Neurologic/Psychiatric: 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 Pt normally independently ambulatory at baseline but has progressive pain and LLE weakness in the last few days until she could no longer walk. Low back pain, LLE weakness-- improving slowly MRI: T12 lesion suggests metastatic focus, old compression fx of L1 and L2, no severe stenosis, there is mild foraminal canal narrowing pelvic x-ray suggests possible left femur lesion in head and neck? patient prefers to get MRI hip in [place] pain control: Tylenol 1000mg q8 scheduled for the next two weeks and then use as needed for pain oxycodone 5mg in the morning and afternoon, can take additional in the evening if needed Medrol dose pack to reduce inflammation, swelling d/c to home, will return to [facility] on 12/15 and follow up with her physicians there use rolling walker, wheelchair at home, strong family support CVA w/residual weakness, HLD--stable -Continue Pradaxa 150 mg PO BID and Zocor 40 mg PO qd Tobacco use -Encourage cessation Breast cancer, possible metastatic T12 lesion, possible left femoral head and neck metastatic lesion -Pt does not want work up for this done in [place], will wait until she returns to [place] on 12/15 DVT prophylaxis -Pradaxa Code Status -Level I, FULL RESUSCITATION STATUS Total Time Spent: Greater than 30 minutes This includes examination of the patient, discharge planning, medication reconciliation, and communication with other providers. Discharge Instructions Please refer to the electronic Patient Visit Report (Discharge Instructions) for additional information. Follow-Up physician in [place]
[2017-12-01 12:23] VITALS: BP 137/77; PULSE 56; TEMP 36.7; O2SAT 96
== END 2017-12-01 13:46 | disposition home or self-care (01) ==
LOC: C.EDB 10:46 → C.4E 14:58 → ENRESERV 15:29
PROVIDERS: ADMIT Internal Medicine; ATTEND Internal Medicine
DX: M54.5 Low back pain (principal); Z86.73 Personal history of transient ischemic attack (TIA), and cerebral infarction without residual deficits; F17.200 Nicotine dependence, unspecified, uncomplicated; Z79.899 Other long term (current) drug therapy; E78.5 Hyperlipidemia, unspecified; S32.010A Wedge compression fracture of first lumbar vertebra, initial encounter for closed fracture; S32.020A Wedge compression fracture of second lumbar vertebra, initial encounter for closed fracture; X58.XXXA Exposure to other specified factors, initial encounter; Z85.3 Personal history of malignant neoplasm of breast; Z79.01 Long term (current) use of anticoagulants